=== PATIENT | female | born 1995 | race Caucasian/White ===

== ENCOUNTER 2019-05-06 22:10 | Emergency (ER) | payer OTHER ==
[~2019-05-06] VITALS: Ht 165.1 cm; Wt 66.7 kg
[2019-05-07] MEDS ORDERED: ZOFRAN4 MG PO (03:39)
== END 2019-05-07 03:57 | disposition home or self-care (01) ==
LOC: ER 22:10
DX: O26.891 Other specified pregnancy related conditions, first trimester (principal); R10.2 Pelvic and perineal pain; Z34.01 Encounter for supervision of normal first pregnancy, first trimester

== ENCOUNTER → 2019-07-12 | Emergency (ER) | payer OTHER ==
[~2019-07-12] VITALS: Ht 165.1 cm; Wt 66.2 kg
[~2019-07-12] MED LIST: ZOFRAN4 MG PO
== END | disposition left against medical advice (07) ==
LOC: ER 20:34
DX: O20.0 Threatened abortion (principal)

== ENCOUNTER 2021-07-29 23:19 | Emergency (ER) | payer OTHER ==
[~2021-07-29] VITALS: Ht 165.1 cm; Wt 78.9 kg
[2021-07-29] MEDS ORDERED: ADVIL (23:33)
[2021-07-30] MEDS ORDERED: KETO10TA2 PO (02:07)
== END 2021-07-30 02:04 ==
LOC: ER 23:19
DX: S67.01XA Crushing injury of right thumb, initial encounter (principal); W23.0XXA Caught, crushed, jammed, or pinched between moving objects, initial encounter; Y93.89 Activity, other specified; Y92.89 Other specified places as the place of occurrence of the external cause; Y99.8 Other external cause status

== ENCOUNTER 2023-12-01 18:22 | Emergency (ER) | payer OTHER ==
[~2023-12-01] VITALS: Ht 167.6 cm; Wt 83.0 kg
[~2023-12-01 18:22] MED LIST changes: +ADVIL; +KETO10TA2 PO
[2023-12-01 20:21] LABS: HEMATOCRIT 40.9 % (36.0-45.00); HEMOGLOBIN 13.7 g/dL (12.0-15.00); MEAN CELL VOLUME 83.2 fL (80.00-100.00); MEAN CORPUSCULAR HEMOGLOBIN 27.9 pg (27.00-32.0); MEAN CORPUSCULAR HGB CONC 33.5 g/dl (32.0-36.0); PLATELET COUNT 179 K/uL (150-450); RED BLOOD COUNT 4.92 M/uL (4.00-6.00); RED CELL DISTRIBUTION WIDTH 13.9 % (11.5-14.5)
[2023-12-01 20:31] LABS: PH,URINE 5.5 (5.0-8.0); URINE APPEARANCE Clear; URINE BILIRRUBIN Negative (NEGATIVE); URINE BLOOD Large; URINE COLOR Dark Yellow; URINE GLUCOSE Negative (NEGATIVE); URINE LEUKOCYTE Negative; URINE NITRATE Negative; URINE PROTEIN Trace (NEGATIVE)
[2023-12-01 20:32] LABS: URINE BACTERIA 655.1 uL (0.0-1933); URINE EPITHELIAL CELLS 23.7 uL (0.0-38.8); URINE RBC 63.2 uL (0.0-20.8); URINE WBC 8.8 uL (0.0-23.2)
[2023-12-01 20:33] LABS: INR 1.04; PARTIAL THROMBOPLASTIN TIME 30.5 SECONDS (22.0-34.0); PROTHROMBIN TIME 10.9 SECONDS (9.0-11.5)
[2023-12-01 20:40] LABS: ALBUMIN 3.7 gm/dL (3.4-5.0); ALKALINE PHOSPHATASE 104 U/L (50-136); ALT/SGPT 169 U/L (12-78); ANION GAP 8 (10.0-20.0); AST/SGOT 92 U/L (15-37); BILIRUBIN TOTAL 0.49 mg/dL (0.3-1.2); BLOOD UREA NITROGEN 13 mg/dL (7-18); BUN CREA RATIO 15 (7.0-25.0); CALCIUM 8.9 mg/dL (8.5-10.1); CARBON DIOXIDE 29 mEq/L (21-32); CHLORIDE 105 mmol/L (98-107); CREATININE SERUM 0.84 mg/dL (0.55-1.02); GFR 81.33; GLOBULINA 4.2 G/DL (2.4-3.5); GLUCOSE FASTING 132 mg/dL (65-100); OSMOLALITY SERUM 280 MOSM/KG (275-295); POTASSIUM 3.29 mEq/L (3.5-5.1); SODIUM 139 mmol/L (136-145); TOTAL PROTEIN 7.9 gm/dL (6.4-8.2)
[2023-12-01 20:41] LABS: HCG QUANTITATIVE < 1 mUI/mL (1-3)
== END 2023-12-01 22:28 | disposition home or self-care (01) ==
LOC: ER 18:22
PROVIDERS: General Practice
DX: B34.9 Viral infection, unspecified (principal); R10.9 Unspecified abdominal pain; Z88.8 Allergy status to other drugs, medicaments and biological substances